=== PATIENT | female | born 1990 | race Hispanic/Latino ===

== ENCOUNTER 2018-04-07 08:07 | Inpatient (IN) | payer BC ==
[2018-04-07] MEDS ORDERED: KETOROLAC 30 MG/ML INJ ONE (08:49)
[2018-04-07] MEDS ORDERED: NA CHLORIDE 0.9% 1,000 ML ONE ×2 (08:49→10:33)
[2018-04-07] MEDS ORDERED: DIPHENHYDRAMINE 50 MG/ML VIAL ONE (08:49)
[2018-04-07] MEDS ORDERED: METOCLOPRAMIDE 10 MG/2mL INJ ONE (08:49)
[2018-04-07 08:59] LABS: Absolute Lymphocytes (CBC) 0.6 K/uL (0.7-4.9); Absolute Neutrophil 13.5 K/uL (1.8-8.0); Basophils % 0.3 % (0-1.3); Eosinophils % 0.1 % (0-4.4); Hematocrit 40.2 % (36.0-45.0); Lymphocytes % 4.1 % (15.3-44.8); Monocytes % 6.8 % (3.3-12.3); RBC Red Blood Cell Count 4.48 M/uL (3.86-4.86)
[2018-04-07 09:09] LABS: ALT/SGPT 17 U/L (12-78); AST/SGOT 13 U/L (15-37); Alkaline Phosphatase 72 U/L (45-117); BUN Blood Urea Nitrogen 7 mg/dL (7-18); Bicarbonate 24 mmol/L (21-32); Bilirubin Direct 0.3 mg/dL (0-0.2); Bilirubin Total 1.2 mg/dL (0.2-1.0); Glucose Level 90 mg/dL (74-106); Lipase 109 U/L (73-393); Protein, Total 7.8 g/dL (6.4-8.2); Sodium Level 137 mmol/L (136-145)
[2018-04-07 09:36] LABS: Urine Bacteria <20 /HPF (<20); Urine Culture Reflex Order REFLEXED; Urine RBC <5 /HPF (NONE SEEN)
--- NOTE | 2018-04-07 09:45 | RAD REPORT ---
EXAM DESCRIPTION: CTAbdomen Pelvis W Contrast - 04/07/2018 9:26 am CLINICAL HISTORY: Abdominal pain. iv only;Abd pain COMPARISON: No comparisons TECHNIQUE: Biphasic CT imaging of the abdomen and pelvis was performed with 100 ml non-ionic IV cont rast. All CT scans are performed using dose optimization technique as appropriate and may include automated exposure control or mA/KV adjustment according to patient size. FINDINGS: The lung bases are clear. The liver, spleen, pancreas, adrenal glands and kidneys are within normal limits. There is mild uroep ithelial enhancement seen involving the right ureter suggesting an ascending urinary tract infection. No bowel obstruction, free air, free fluid or abscess. The appendix is normal. No evidence of signi ficant lymphadenopathy. No suspicious bony findings. 6 cm left ovarian cyst is present. IMPRESSION: Evidence of ascending urinary tract infection identified on the right. No pyelonephritis findings present. Advise urinalysis correlation. 6 cm left ovarian cyst.
[2018-04-07] MEDS ORDERED: POTASSIUM CL SA 10 MEQ TAB PO ONE (10:07)
[2018-04-07 10:11] LABS: Blood Morphology Comment NOT SEEN (NOT SEEN); Platelet Estimate ADEQ
[2018-04-07] MEDS ORDERED: CEFTRIAXONE/SWI 1gm 1 GM/10 ML SYR ONE (10:12)
[2018-04-07] MEDS ORDERED: AZITHROMYCIN 250 MG TAB ONE (10:12)
[2018-04-07 10:47] LABS: Urine Blood TRACE (NEG); Urine Glucose NEGATIVE (NEG); Urine Protein 2+ (NEG); Urine Specific Gravity 1.015 (1.005-1.030)
--- NOTE | 2018-04-07 11:36 | ER ---
Nurse's Notes [facility] Name: Anna Avila Age: 27 yrs Sex: Female : 1990 Arrival Date: 04/07/2018 Time: 08:10 Bed 14 Private MD: None, None Diagnosis: Cystitis;Ureteritis;Female pelvic inflammatory disease, unspecified Presentation: 04/07 08:19 Presenting complaint: Patient states: headache to gabriel temples that began 4 days ago. Pt aa5 states "the headache is so bad that it makes me vomit". Pt reports lower abd pain x 3 days ago, fever since yesterday, and burning with urination x 2 weeks ago. Pt denies diarrhea. Denies cough, denies congestion. 08:19 Transition of care: patient was not received from another setting of care. Onset of aa5 symptoms was March 2018. Risk Assessment: Do you want to hurt yourself or someone else? Patient reports no desire to harm self or others. Initial Sepsis Screen: Does the patient meet any 2 criteria? HR > 90 bpm. Does the patient have a suspected source of infection? No. Patient's initial sepsis screen is negative. Care prior to arrival: None. 08:19 Method Of Arrival: Ambulatory aa5 08:19 Acuity: [place] 3 aa5 08:19 Note Pt reports taking Tylenol today at 0500. aa5 Triage Assessment: 08:20 Headache History: The patient has had previous headaches and this one is more severe aa5 than previous episodes. 10:00 General: Appears uncomfortable, Behavior is calm, cooperative. ls4 10:00 Pain: Complains of pain in left lower quadrant and right lower quadrant and suprapubic ls4 area and left moravian and right moravian Also complains of decreased appetite, nausea. Pain: Pain currently is 4 out of 10 on a pain scale. Neuro: Level of Consciousness is awake, alert, Oriented to person, place, time, situation. Respiratory: No deficits noted. 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 - Ebola Screening: : No symptoms or risks identified at this time. - Social history:: Smoking status: Patient/guardian denies using tobacco. Screenin:20 Abuse screen: Denies threats or abuse. Nutritional screening: No deficits noted. aa5 Tuberculosis screening: No symptoms or risk factors identified. Fall Risk None identified. Assessment: 08:20 General: Appears uncomfortable, Behavior is calm, cooperative. Pain: Complains of pain aa5 in right moravian and left moravian, RLQ, and LLQ Pain does not radiate. Pain currently is 9 out of 10 on a pain scale. Quality of pain is described as pressure, throbbing, Pain began 3-4 days ago Is continuous. Neuro: Level of Consciousness is awake, alert, obeys commands, Oriented to person, place, time, situation, Food Selector are equal bilaterally Moves all extremities. Gait is steady, Speech is normal, Facial symmetry appears normal, Pupils are PERRLA, Reports headache. Cardiovascular: Heart tones S1 S2 present Rhythm is regular. Respiratory: Airway is patent Respiratory effort is even, unlabored, Respiratory pattern is regular, symmetrical, Breath sounds are clear bilaterally. Denies cough. GI: Abdomen is round non-distended, Bowel sounds present X 4 quads. Abd is soft X 4 quads Abdomen is tender to palpation in suprapubic area, right lower quadrant and left lower quadrant Reports nausea, vomiting, Patient currently denies constipation, diarrhea. : Reports burning with urination. EENT: No signs and/or symptoms were reported regarding the EENT system. Derm: Skin is pink, warm \\T\\ dry. Musculoskeletal: Range of motion: intact in all extremities. 08:55 Reassessment: Patient is alert, oriented x 3, equal unlabored respirations, skin aa5 warm/dry/pink. Pt lying down in bed. Pt notified of wait time for lab results and for CT scan to be completed.. 09:15 Reassessment: Patient is alert, oriented x 3, equal unlabored respirations, skin aa5 warm/dry/pink. Patient states feeling better. Pt sitting up in bed. Awaiting CT scan . Pain: Pain currently is 6 out of 10 on a pain scale. 09:45 Reassessment: Patient and/or family updated on plan of care and expected duration. Pain aa5 level reassessed. Patient is alert, oriented x 3, equal unlabored respirations, skin warm/dry/pink. Patient states feeling better. Pain: Pain currently is 4 out of 10 on a pain scale. Vital Signs: 08:20 BP 110 / 70; Pulse 125; Resp 18 S; Temp 99.4(O); Pulse Ox 98% on R/A; Weight 70.9 kg aa5 (M); Pain 9/10; 09:45 BP 93 / 57; Pulse 108; Resp 16 S; Temp 98.7(O); Pulse Ox 97% on R/A; Pain 4/10; aa5 11:30 BP 94 / 59; Pulse 115; Resp 18; Pulse Ox 99% on R/A; Pain 3/10; ls4 12:30 BP 107 / 75; Pulse 107; Resp 16; Temp 98.9; Pulse Ox 99% on R/A; Pain 2/10; ls4 ED Course: 08:10 Patient arrived in ED. mr 08:11 None, None is Private Physician. mr 08:19 Viola Goodwin RN is Primary Nurse. aa5 08:19 Arm band placed on Patient placed in an exam room, on a stretcher. aa5 08:19 Patient has correct armband on for positive identification. Placed in gown. Bed in low aa5 position. Call light in reach. Side rails up X2. Pulse ox on. NIBP on. 08:20 Lisandro Cui PA is PHCP. jr8 08:20 Teddy Mckeon MD is Attending Physician. jr8 08:34 Triage completed. aa5 08:43 Urine collected: Micro sent to lab. UPT Negative. aa5 08:45 Initial lab(s) drawn, by ct, sent to lab. Inserted saline lock: 20 gauge in left aa5 antecubital area, using aseptic technique. Blood collected. 09:23 CT completed. Patient tolerated procedure well. Patient moved to CT via wheelchair. Patient moved back from CT. 09:30 CT Abd/Pelvis - W/Contrast In Process Unspecified. EDMS 09:55 Report given to JEANNETTE Grant. aa5 11:34 Phillip Ocasio MD is Hospitalizing Provider. jr8 Administered Medications: 08:45 Drug: NS 0.9% 1000 ml Route: IV; Rate: 1000 ml; Site: left antecubital; aa5 08:52 Drug: Reglan 10 mg Route: IVP; Site: left antecubital; aa5 09:16 Follow up: Response: No adverse reaction aa5 08:54 Drug: Benadryl 25 mg Route: IVP; Site: left antecubital; aa5 09:16 Follow up: Response: No adverse reaction aa5 08:54 Drug: TORadol 30 mg Route: IVP; Site: left antecubital; aa5 09:16 Follow up: Response: No adverse reaction aa5 10:10 Drug: AZITHromycin 1 grams Route: PO; ls4 10:40 Follow up: Response: No adverse reaction; No change in condition ls4 10:11 Drug: Potassium Chloride 40 mEq Route: PO; ls4 10:40 Follow up: Response: No adverse reaction ls4 10:11 Drug: Rocephin 1 grams Route: IV; Rate: calculated rate; Site: left antecubital; ls4 10:20 Follow up: IV Status: Completed infusion; IV Intake: 10ml ls4 10:24 Drug: NS 0.9% 1000 ml Route: IV; Rate: 1000 ml; Site: left antecubital; ls4 12:47 Follow up: IV Status: Completed infusion; IV Intake: 1000ml ls4 11:52 Drug: Doxycycline 100 mg Route: PO; ls4 12:28 Follow up: Response: No adverse reaction ls4 12:48 Not Given (Duplicate Order): Zofran 4 mg PO once ls4 12:48 Drug: Zofran 4 mg Route: IVP; Site: left antecubital; ls4 Intake: 10:20 IV: 10ml; Total: 10ml. ls4 12:47 IV: 1000ml; Total: 1010ml. ls4 Outcome: 11:35 Decision to Hospitalize by Provider. jr8 13:51 Patient left the ED. ls4 Signatures: Dispatcher [employer] Cindy Bryant Susan sj Calderon, Audri, RN RN aa5 Lisandro Cui PA PA jr8 Juaniat Pantoja RN RN ls4 Corrections: (The following items were deleted from the chart) 09:57 09:45 BP 93 / 57; Pulse 108bpm; Resp 16bpm; Spontaneous; Pulse Ox 97% RA; Temp 98.7F aa5 Oral; aa5 12:47 12:40 IV Status: Completed infusion ls4 ls4 12:47 10:44 IV Status: Completed infusion; IV Intake: 1000ml ls4 ls4
--- NOTE | 2018-04-07 11:37 | EDPHYS ---
Physician Documentation [facility] Name: Anna Avila Age: 27 yrs Sex: Female : 1990 Arrival Date: 04/07/2018 Time: 08:10 Bed 14 Private MD: None, None ED Physician Teddy Mckeon HPI: 04/07 08:31 This 27 yrs old Female presents to ER via Unassigned with complaints of jr8 Headache, Vomiting, Fever. 08:31 The patient complains of pain to the right orthodoxy and left orthodoxy. The patient jr8 describes the headache as throbbing. Onset: The symptoms/episode began/occurred acutely, 2 day(s) ago. Associated signs and symptoms: Pertinent positives: fever, nausea, lower abdominal pain, dysuria, and painful intercourse . The symptoms are alleviated by nothing. the symptoms are aggravated by nothing. The patient has not experienced similar symptoms in the past. The patient has not recently seen a physician. 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 - Ebola Screening: : No symptoms or risks identified at this time. - Social history:: Smoking status: Patient/guardian denies using tobacco. ROS: 08:31 Eyes: Negative for injury, pain, redness, and discharge, ENT: Negative for injury, jr8 pain, and discharge, Neck: Negative for injury, pain, and swelling, Cardiovascular: Negative for chest pain, palpitations, and edema, Respiratory: Negative for shortness of breath, cough, wheezing, and pleuritic chest pain, Back: Negative for injury and pain, MS/Extremity: Negative for injury and deformity, Skin: Negative for injury, rash, and discoloration. 08:31 Constitutional: Positive for fever. 08:31 Abdomen/GI: Positive for abdominal pain, nausea, vomiting, Negative for diarrhea, constipation, abdominal cramps, abdominal distension, anorexia, dysphagia, hematemesis, black/tarry stool, rectal pain, rectal bleeding, bowel incontinence, flatulence. 08:31 : Positive for urinary symptoms. 08:31 Neuro: Positive for headache, Negative for altered mental status, dizziness, gait disturbance, hearing loss, loss of consciousness, numbness, seizure activity, speech changes, syncope, near syncope, tingling, tinnitus, tremor, visual changes, weakness. Exam: 08:31 Head/Face: Normocephalic, atraumatic. Eyes: Pupils equal round and reactive to light, jr8 extra-ocular motions intact. Lids and lashes normal. Conjunctiva and sclera are non-icteric and not injected. Cornea within normal limits. Periorbital areas with no swelling, redness, or edema. ENT: Nares patent. No nasal discharge, no septal abnormalities noted. Tympanic membranes are normal and external auditory canals are clear. Oropharynx with no redness, swelling, or masses, exudates, or evidence of obstruction, uvula midline. Mucous membranes moist. Neck: Trachea midline, no thyromegaly or masses palpated, and no cervical lymphadenopathy. Supple, full range of motion without nuchal rigidity, or vertebral point tenderness. No Meningismus. Cardiovascular: Regular rate and rhythm with a normal S1 and S2. No gallops, murmurs, or rubs. Normal PMI, no JVD. No pulse deficits. Respiratory: Lungs have equal breath sounds bilaterally, clear to auscultation and percussion. No rales, rhonchi or wheezes noted. No increased work of breathing, no retractions or nasal flaring. Back: No spinal tenderness. No costovertebral tenderness. Full range of motion. Skin: Warm, dry with normal turgor. Normal color with no rashes, no lesions, and no evidence of cellulitis. MS/ Extremity: Pulses equal, no cyanosis. Neurovascular intact. Full, normal range of motion. Neuro: Awake and alert, GCS 15, oriented to person, place, time, and situation. Cranial nerves II-XII grossly intact. Motor strength 5/5 in all extremities. Sensory grossly intact. Cerebellar exam normal. Normal gait. 08:31 Abdomen/GI: Inspection: abdomen appears normal, Bowel sounds: active, all quadrants, Palpation: soft, in all quadrants, mild abdominal tenderness, in the suprapubic area, right lower quadrant and left lower quadrant, mass, is not appreciated, rebound tenderness, is not appreciated, voluntary guarding, is not appreciated, involuntary guarding, is not appreciated, no appreciated organomegaly, Indicators: McBurney's point is not tender, Albright's sign is negative, Rovsing's sign is negative, Liver: no appreciated palpable abnormalities, tenderness, is not appreciated. Vital Signs: 08:20 BP 110 / 70; Pulse 125; Resp 18 S; Temp 99.4(O); Pulse Ox 98% on R/A; Weight 70.9 kg aa5 (M); Pain 9/10; 09:45 BP 93 / 57; Pulse 108; Resp 16 S; Temp 98.7(O); Pulse Ox 97% on R/A; Pain 4/10; aa5 11:30 BP 94 / 59; Pulse 115; Resp 18; Pulse Ox 99% on R/A; Pain 3/10; ls4 12:30 BP 107 / 75; Pulse 107; Resp 16; Temp 98.9; Pulse Ox 99% on R/A; Pain 2/10; ls4 MDM: 08:31 Patient medically screened. jr8 11:32 Data reviewed: vital signs, nurses notes, lab test result(s), radiologic studies, CT jr8 scan. Data interpreted: Pulse oximetry: on room air is 97 %. Interpretation: normal. Counseling: I had a detailed discussion with the patient and/or guardian regarding: the historical points, exam findings, and any diagnostic results supporting the discharge/admit diagnosis, lab results, radiology results, the need for further work-up and treatment in the hospital. Physician consultation: Phillip Ocasio MD was called at 11:32, was contacted at 11:32, regarding admission, to the telemetry unit. consult, patient's condition, and will see patient. ED course: Patient continues to be tachycardic with mild hypotension. Had low grade fevers. Concern for both UTI with PID. Will admit as patient clinically still does not look well. Dr. Ocasio agrees and will see and admit patient . 04/07 08:35 Order name: Basic Metabolic Panel; Complete Time: :8 04/07 08:35 Order name: CBC with Diff; Complete Time: 10:18 8 04/07 08:35 Order name: Creatinine for Radiology; Complete Time: :8 04/07 08:35 Order name: Hepatic Function; Complete Time: :8 04/07 08:35 Order name: Lipase; Complete Time: 09:31 [facility] 04/07 08:35 Order name: Urine Microscopic Only; Complete Time: 09:49 [facility] 04/07 08:43 Order name: CT Abd/Pelvis - W/Contrast; Complete Time: 09:49 [facility] 04/07 08:53 Order name: Urine Dipstick--Ancillary (enter results); Complete Time: 11:03 04/07 08:53 Order name: Urine --Ancillary (enter results); Complete Time: 11:03 04/07 09:44 Order name: Urine Culture [facility] 04/07 10:11 Order name: Manual Differential; Complete Time: 10:18 [facility] 04/07 10:21 Order name: Blood Culture Adult (2) [facility] 04/07 11:17 Order name: GC (GONORR/CHLAMYDIA) Probe [facility] 04/07 11:17 Order name: Wet Prep; Complete Time: 11:38 [facility] 04/07 08:35 Order name: IV Saline Lock; Complete Time: 08:55 [facility] 04/07 08:35 Order name: Labs collected and sent; Complete Time: 08:55 [facility] 04/07 08:35 Order name: Urine Test (obtain specimen); Complete Time: 08:54 [facility] 04/07 08:35 Order name: Urine Dipstick-Ancillary (obtain specimen); Complete Time: 08:54 Administered Medications: 08:45 Drug: NS 0.9% 1000 ml Route: IV; Rate: 1000 ml; Site: left antecubital; aa5 08:52 Drug: Reglan 10 mg Route: IVP; Site: left antecubital; aa5 09:16 Follow up: Response: No adverse reaction aa5 08:54 Drug: Benadryl 25 mg Route: IVP; Site: left antecubital; aa5 09:16 Follow up: Response: No adverse reaction aa5 08:54 Drug: TORadol 30 mg Route: IVP; Site: left antecubital; aa5 09:16 Follow up: Response: No adverse reaction aa5 10:10 Drug: AZITHromycin 1 grams Route: PO; ls4 10:40 Follow up: Response: No adverse reaction; No change in condition ls4 10:11 Drug: Potassium Chloride 40 mEq Route: PO; ls4 10:40 Follow up: Response: No adverse reaction ls4 10:11 Drug: Rocephin 1 grams Route: IV; Rate: calculated rate; Site: left antecubital; ls4 10:20 Follow up: IV Status: Completed infusion; IV Intake: 10ml ls4 10:24 Drug: NS 0.9% 1000 ml Route: IV; Rate: 1000 ml; Site: left antecubital; ls4 12:47 Follow up: IV Status: Completed infusion; IV Intake: 1000ml ls4 11:52 Drug: Doxycycline 100 mg Route: PO; ls4 12:28 Follow up: Response: No adverse reaction ls4 12:48 Not Given (Duplicate Order): Zofran 4 mg PO once ls4 12:48 Drug: Zofran 4 mg Route: IVP; Site: left antecubital; ls4 Disposition: 04/07/18 11:35 Hospitalization ordered by Phillip Ocasio for Inpatient Admission. Preliminary diagnosis are Cystitis, Ureteritis, Female pelvic inflammatory disease, unspecified. - Bed requested for Telemetry/MedSurg (Inpatient). - Status is Inpatient Admission. ls4 - Condition is Fair. - Problem is new. - Symptoms have improved. UTI on Admission? Yes Signatures: Dispatcher [employer] EDMS Viola Goodwin RN RN aa5 Lisandro Cui PA PA jr8 Gali Zepeda Lisa, RN RN ls4 Corrections: (The following items were deleted from the chart) 11:38 11:35 Hospitalization Ordered by Phillip Ocasio MD for Observation. Preliminary diagnosis jr8 is Cystitis; Ureteritis; Female pelvic inflammatory disease, unspecified. Bed requested for Telemetry/MedSurg (observation). Status is Observation. Condition is Fair. Problem is new. Symptoms have improved. UTI on Admission? Yes. jrLuis 13:00 11:38 04/07/2018 11:35 Hospitalization Ordered by Phillip Ocasio MD for Inpatient eb Admission. Preliminary diagnosis is Cystitis; Ureteritis; Female pelvic inflammatory disease, unspecified. Bed requested for Telemetry/MedSurg (Inpatient). Status is Inpatient Admission. Condition is Fair. Problem is new. Symptoms have improved. UTI on Admission? Yes. jrLuis 13:01 13:00 04/07/2018 11:35 Hospitalization Ordered by Phillip Ocasio MD for Inpatient eb Admission. Preliminary diagnosis is Cystitis; Ureteritis; Female pelvic inflammatory disease, unspecified. Bed requested for Telemetry/MedSurg (Inpatient). Status is Inpatient Admission. Condition is Fair. Problem is new. Symptoms have improved. UTI on Admission? Yes. eb 13:51 13:01 04/07/2018 11:35 Hospitalization Ordered by Phillip Ocasio MD for Inpatient ls4 Admission. Preliminary diagnosis is Cystitis; Ureteritis; Female pelvic inflammatory disease, unspecified. Bed requested for Telemetry/MedSurg (Inpatient). Status is Inpatient Admission. Condition is Fair. Problem is new. Symptoms have improved. UTI on Admission? Yes. eb
[2018-04-07] MEDS ORDERED: DOXYCYCLINE 100 MG CAP PO ONE (12:03)
[2018-04-07] MEDS ORDERED: ONDANSETRON 4 MG/2 ML VIAL ONE (12:55)
[2018-04-07] MEDS ORDERED: ONDANSETRON 4 MG/2 ML VIAL IV PRN (13:53)
[2018-04-07] MEDS ORDERED: ACETAMINOPHEN 500 MG TAB PO PRN (13:53)
[2018-04-07] MEDS ORDERED: NA CHLORIDE 0.9% 1,000 ML IV ONE (14:00)
[2018-04-07] MEDS: NA CHLORIDE 0.9% 1,000 ML IV SCH ×2 (14:10→21:53)
[2018-04-07 14:50] VITALS: BMI 27.6
[2018-04-07] MEDS ORDERED: INFLUENZA VACCINE (for 3y+) 0.5 ML DOSE IMVAC ONE (15:00)
[2018-04-07 15:24] VITALS: O2SAT 98
[2018-04-07] MEDS ORDERED: ENOXAPARIN 40 MG/0.4 ML SQ SCH (17:00)
[2018-04-07] MEDS: DOXYCYCLINE 100 MG CAP PO SCH (21:00)
[2018-04-07] MEDS: HYDROCODONE/APAP 7.5/325 MG TAB PO PRN (21:01)
--- NOTE | 2018-04-08 00:57 | HP ---
Date of Admission: 04/07/2018 Chief Complaint: Abdominal pain, headache. History Of Present Illness: The patient is a 27-year-old female with past medical history of migrain e headaches, who comes in with suprapubic abdominal pain radiating to the right flank along with migr trell headache. The patient reports some nausea, but no vomiting. No fevers or chills. It should be noted that the patient is Lithuanian-speaking only and [employer] historic interpreter services were utilized. The patient's symptoms are constant, moderate, progressively worsening. She does report some dysuri a and dyspareunia. She states that she only has 1 sexual partner, her . Denies any vaginal d ischarge. In the ER, she was found to be hypotensive with a systolic in the 80s. She was tachycardi c and had an elevated white blood cell count of 15,000 with bandemia. Her UA was abnormal. CT scan showed urethritis with possible ascending infection. She was given 2 L of normal saline bolus. IV a ntibiotics were initiated, and she was referred for admission. When seen in the ER, she was awake, a lert, oriented x3, in some mild distress. Past Medical History: Migraine headaches. Past Surgical History: She has had a . Allergies: NO KNOWN DRUG ALLERGIES. Medications: The patient takes [id number]-[id number] Tylenol. Social History: The patient denies tobacco use, alcohol use, or illicit drug use. 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 The patient is sexually active with 1 part ner. No history of STDs. Family History: The patient denies any history of premature coronary artery disease in the family. Review of Systems: An 11-point system reviewed, negative except as per HPI. Physical Examination: Vital Signs: Blood pressure 93/57, pulse 125, respirations 18, temperature 99.4, O2 98% on room air. General: Awake, alert, oriented x3, ill-appearing female. HEENT: Normocephalic, atraumatic. PERRLA, EOMI. Dry mucous membranes. Oropharynx is clear. Conju nctiva is anicteric. Normal dentition. Oropharynx is clear. Neck: Supple. No JVD. Trachea midline. CV: S1, S2. Sinus tachycardia. Peripheral pulses present. No murmurs. Respiratory: Moving air well bilaterally. No wheezing or stridor. No use of accessory muscles. Gastrointestinal: Abdomen is soft. Tenderness to palpation in suprapubic region. No rebound or gua rding. Bowel sounds are positive. No masses. Extremities: No clubbing, cyanosis, or edema. No calf tenderness. Skin: No rashes. Normal skin turgor. Cap refill is less than 2 seconds. Neuro: Cranial nerves 2 through 12 intact grossly. No focal neurological deficits. Speech is thelma l. Strength is 5/5 in bilateral upper and lower extremities. Sensation intact to light touch. Psych: Mood is okay. Affect is somewhat flat. Insight and judgment are good. Laboratory Data: Sodium 137, potassium 3, chloride 104, CO2 24, BUN 7, creatinine 0.7, glucose 90, c alcium 9.3, total bilirubin 1.2, lipase 109. WBC 15.2, H and H 13.9 and 40.2, platelets 200, neutrop hils 88% with 2% bands. UA, positive nitrite, 1+ leukocyte esterase, trace blood, less than 5 rbc's, greater than 50 wbc's, 5-10 squamous epithelial cells, less than 20 bacteria. test is neg ative. Gonorrhea and chlamydia testing is pending. Wet prep was negative. Did not show any clue ce lls, bacteria, or yeast. Imaging Studies: CT scan of the abdomen and pelvis with contrast shows evidence of ascending urinary tract infection identified on the right. No pyelonephritis findings are present. Advised urinalysi s correlation. A 6 cm left ovarian cyst. Assessment And Plan: A 27-year-old female with: 1.Developing sepsis. The patient is hypotensive, tachycardic, low-grade fever initially, but once g etting on the floor, had temperature spiked greater than 100. The patient received 2 L of normal rachel ine bolus. We will go ahead and start on third liter. We will start on IV antibiotics. Cultures vines ve been obtained. We will obtain procalcitonin and lactate level. 2.Urinary tract infection with ascending infection. No signs of pyelonephritis. The patient does h ave some right-sided tenderness and costovertebral angle tenderness. We will continue with antibioti cs and follow up on cultures. 3.Suprapubic abdominal pain, likely secondary to above. 4.Incidental finding of 6 cm left ovarian cyst. The patient will need continued monitoring. 5.Hypokalemia. We will replace and monitor. 6.Hyperbilirubinemia, likely acute phase reactant. Plan: Admit the patient to Med/Surge, place as inpatient. Start on sepsis bundle. We will reassess in 6 hours. We will check for chlamydia and gonorrhea. No other risk factors for STDs. Wet prep w as negative. /LORENA Voice ID: [id number]
[2018-04-08] MEDS: NA CHLORIDE 0.9% 1,000 ML IV SCH ×3 (05:53→13:53)
[2018-04-08 05:54] LABS: Absolute Lymphocytes (CBC) 1.5 K/uL (0.7-4.9); Absolute Monocytes 1.1 K/uL (0.1-1.3); Absolute Neutrophil 7.1 K/uL (1.8-8.0); Basophils % 0.3 % (0-1.3); Eosinophils % 0.1 % (0-4.4); Hematocrit 32.9 % (36.0-45.0); Lymphocytes % 15.3 % (15.3-44.8); MPV 10.2 fL (7.6-11.3); Monocytes % 11.6 % (3.3-12.3); RBC Red Blood Cell Count 3.64 M/uL (3.86-4.86)
[2018-04-08 06:15] LABS: ALT/SGPT 30 U/L (12-78); AST/SGOT 26 U/L (15-37); Albumin 2.8 g/dL (3.4-5.0); Alkaline Phosphatase 62 U/L (45-117); BUN Blood Urea Nitrogen 3 mg/dL (7-18); Bicarbonate 22 mmol/L (21-32); Bilirubin Total 0.3 mg/dL (0.2-1.0); Glucose Level 93 mg/dL (74-106); Potassium 3.6 mmol/L (3.5-5.1); Protein, Total 5.9 g/dL (6.4-8.2); Sodium Level 139 mmol/L (136-145)
[2018-04-08] MEDS: DOXYCYCLINE 100 MG CAP PO SCH (08:03)
[2018-04-08] MEDS: HYDROCODONE/APAP 7.5/325 MG TAB PO PRN ×2 (08:03→12:39)
[2018-04-08] MEDS ORDERED: CEFTRIAXONE/SWI 1gm 1 GM/10 ML SYR IV SCH (09:00)
[2018-04-08] MEDS ORDERED: POTASSIUM CL SA 10 MEQ TAB PO ONE (09:00)
[2018-04-08 12:17] VITALS: BP 109/62; TEMP 97.7
--- NOTE | 2018-04-09 00:59 | DS ---
Date of Discharge: 04/08/2018 Discharge Diagnoses: 1.Sepsis. 2.Urinary tract infection with ascending infection. 3.Suprapubic abdominal pain. 4.Left ovarian cyst, 6 cm. 5.Hypokalemia. 6.Hyperbilirubinemia. 7.Metabolic acidosis. Hospital Course: The patient is a 27-year-old female who comes in with sepsis, abdominal pain, and h eadache. The patient was found to have a white count of 15,000, with bandemia, had a UTI. CT scan s howed ureteritis with possible ascending infection. She was started on IV fluid boluses at 30 mL/kg per sepsis protocol. The patient responded very well to treatment. She was started on IV antibiotic s as well. Her cultures showed gram-negative rods. Currently, ID and sensitivity are pending. Peggy schwartz, due to her significant early improvement, her white count normalized, her temperature remained s table. She did spike a fever at 1400 hours yesterday at 103.3, but remained afebrile afterwards. He r blood pressure also responded to fluids and was in the 114 over 60s. The patient's pain had resolv ed. Her headache resolved as well. Her lactate, on the day of discharge, had normalized. She did a lso have an elevated procalcitonin level of 5.09, and she had a lactate elevation of 2.5 and 2.3. Bl ood cultures remained negative to date. Her wet prep was negative. She is low risk for any STDs. T he patient was then discharged home in stable condition. Activity: As tolerated. Medications: As per medication reconciliation list. Discharge Instructions: Follow up with primary care physician in 2 to 3 days. Return to ER for wors ening condition. The patient was instructed to have repeat imaging for her ovarian cyst. The patien t does follow up with OB. She will also need to follow up on her gonorrhea and chlamydia results whi le she goes to her primary or OB. Diet: Regular. Activity: As tolerated. Physical Examination: General: Awake, alert, oriented x3, in no acute distress. CV: S1, S2. No murmurs. Respiratory: Moving air well bilaterally. Gastrointestinal: Abdomen is soft, nontender, and nondistended. Positive bowel sounds. Extremities: No clubbing, cyanosis, or edema. Neurologic: Nonfocal. Total time spent discharging the patient was 35 minutes. AARTI Voice ID: [id number] Report ID: [id number]
[2018-04-09 09:31] LABS: C.trachomatis RNA,TMA Not Detected (Not Detected)
--- NOTE | 2018-04-09 14:10 | P.INFCA ---
Sepsis Focused Assessment - Evaluation Current stage of sepsis: Severe sepsis (Not severe sepsis. No organ disfunction) - Vital Signs Reviewed: Yes Temperature: 97.7 F Heart rate: 80 Blood Pressure: 109/62 Respiratory Rate: 18 O2 Sat by Pulse Oximetry: 98 - Examination Date exam was performed: 04/07/18 Time exam was performed: 18:03 Heart: Irregular rhythm, S1, S2, Tachycardia Lungs: Clear bilaterally Peripheral pulses: 2+ Slightly diminished Peripheral pulse location: Pedal Capillary refill: <2 Seconds Skin examination: Normal turgor
== END 2018-04-08 16:11 | disposition home or self-care (01) | DRG 872 ==
LOC: ER 08:07 → ERHOLD 11:50 → 4TH 13:18
PROVIDERS: ADMIT Family Medicine; ATTEND Family Medicine
DX: A41.9 Sepsis, unspecified organism (principal); N39.0 Urinary tract infection, site not specified; E87.2 Acidosis; N83.202 Unspecified ovarian cyst, left side; E87.6 Hypokalemia; E80.6 Other disorders of bilirubin metabolism; N28.89 Other specified disorders of kidney and ureter; G43.909 Migraine, unspecified, not intractable, without status migrainosus; I95.9 Hypotension, unspecified
CPT/HCPCS: 36415; 74177; 80048; 80053; 80076; 81003; 81015; 81025; 83605; 83690; 84145; 85025; 87040; 87077; 87086; 87088; 87186; 87210; 87490; 87590; 94760; 96361; 96374; 96375; 99284; J0696; J1650; J2405; J2765; J7030; Q9967